=== PATIENT | female | born 1960 | race Caucasian/White ===

== ENCOUNTER 2018-11-28 12:53 | Outpatient (CLI) | payer MEDICARE, BC ==
[~2018-11-28] VITALS: Ht 170.2 cm; Wt 65.3 kg
[~2018-11-28 12:53] MED LIST: AMIT10TA6 PO; CYCL-394 PO; ESZO3TAB PO; HYDR-3568 PO
[2018-11-28 13:21] LABS: TOTAL HEMOGLOBIN 15.1 G/dl (12.0-16.0)
[2018-11-28] MEDS ORDERED: albuterol 2.5 MG/3 ML nebule ONE (13:58)
[2018-11-28] MEDS ORDERED: albuterol 2.5 MG/3 ML nebule NEB PRN (14:20)
== END 2018-11-28 23:59 | disposition home or self-care (01) ==
LOC: RT 12:53
PROVIDERS: ATTEND Internal Medicine Pulmonary Disease
DX: M34.9 Systemic sclerosis, unspecified (principal); Z79.82 Long term (current) use of aspirin
CPT/HCPCS: 85018; 94060; 94727; 94729; 94760

== ENCOUNTER 2022-02-14 12:30 | Outpatient (CLI) | payer MEDICARE, BC | END 2022-02-14 23:59 | disposition home or self-care (01) | LOC: CARD DIAG 12:30 | PROVIDERS: ATTEND Internal Medicine Rheumatology | DX: I05.8 Other rheumatic mitral valve diseases (principal); M34.9 Systemic sclerosis, unspecified; Z98.82 Breast implant status | CPT/HCPCS: 93306 ==